=== PATIENT | female | born 1995 | race Caucasian/White ===

== ENCOUNTER 2017-04-20 20:57 | Emergency (ER) | payer OTHER ==
[~2017-04-20] VITALS: Ht 160 cm; Wt 54.5 kg
[~2017-04-20 20:57] MED LIST: NOCURR
[2017-04-20] MEDS ORDERED: PREN-154 PO (21:07)
[2017-04-20] MEDS ORDERED: TETANUS/DIPHTHERIA TOXOID [ADULT] 0.5 ML SYRINGE IM ONE (23:00)
[2017-04-20 23:49] VITALS: BP 111/72
== END 2017-04-20 23:48 | disposition home or self-care (01) ==
LOC: EMS 20:58
DX: O9A.212 Injury, poisoning and certain other consequences of external causes complicating pregnancy, second trimester (principal); S51.851A Open bite of right forearm, initial encounter; F12.10 Cannabis abuse, uncomplicated; Z3A.20 20 weeks gestation of pregnancy; W55.01XA Bitten by cat, initial encounter; Y93.89 Activity, other specified; Y92.89 Other specified places as the place of occurrence of the external cause; Y99.8 Other external cause status
CPT/HCPCS: 90471; 90714; 99283